=== PATIENT | female | born 1960 | race Two or more races ===

== ENCOUNTER 2020-05-08 11:59 | Inpatient (IN) | payer MEDICAID ==
[~2020-05-08] VITALS: Ht 172.7 cm; Wt 82.2 kg
[2020-05-08] MEDS ORDERED: SODIUM CHLORIDE 0.9% 1,000 ML IV ONE ×2 (12:15→16:15)
[2020-05-08] MEDS ORDERED: SODIUM CHLORIDE 0.9% 1,000 ML IVB ONE (12:15)
[2020-05-08 12:31] LABS: Basophils # (auto) 0 10 ^3/uL (0-0.2); Eosinophils # (auto) 0 10 ^3/uL (0-0.8); Eosinophils % (auto) 0.1 % (0.0-7.0); Hematocrit 39.9 % (36.0-46.0); Lymphocytes # (auto) 0.3 10 ^3/uL (0.4-5.4); Monocytes # (auto) 0.2 10 ^3/uL (0-1.3); Nucleated Red Blood Cells % 0.1 %; Red Cell Distribution Width 16.2 % (11.8-14.3); White Blood Cell 5.3 10^3/uL (4.4-10.8)
[2020-05-08 12:33] LABS: Basophils % (auto) 0.2 % (0.0-2.0); Hemoglobin 13.6 g/dL (12.2-16.2); Lymphocytes % (auto) 6.1 % (10.0-50.0); Mean Corpuscular Hemoglobin 26.5 pg (28.0-32.0); Mean Corpuscular Volume 77.9 fL (80.0-100.0); Neutrophils # (auto) 4.7 10 ^3/uL (1.6-8.6); Neutrophils % (auto) 89.6 % (37.0-80.0); Platelet Count (auto) 160 10^3/uL (140-450); Red Blood Cells 5.12 10^6/uL (4.0-5.20)
[2020-05-08] MEDS ORDERED: ONDANSETRON HCL 4 MG/2 ML VIAL IV ONE (12:45)
[2020-05-08] MEDS ORDERED: MORPHINE SULF INJ 2 MG/ML SYRINGE 1ML IV ONE ×2 (12:45→15:15)
[2020-05-08 12:57] LABS: Albumin 3.3 g/dL (3.4-5.0); Anion Gap 6 (5-15); BUN/Creatinine Ratio 17.1; Blood Urea Nitrogen 12 mg/dL (7-18); Carbon Dioxide 26 mmol/L (21-32); Chloride 106 mmol/L (98-107); GFR African American 111 mL/min; GFR Non-African American 92 mL/min; Glucose 120 mg/dL (74-106); Lipase 64 U/L (73-393); Potassium 3.1 mmol/L (3.5-5.1); Sodium 138 mmol/L (136-145)
[2020-05-08 13:02] LABS: Alanine Aminotransferase 111 U/L (13-56); Alkaline Phosphatase 133 U/L (45-117); Aspartate Aminotransferase 124 U/L (15-37); Bilirubin, Total 0.7 mg/dL (0.2-1.0); Total Protein 7.3 g/dL (6.4-8.2)
[2020-05-08] MEDS ORDERED: metroNIDAZOLE 500MG/100ML 100 ML IV ONE (14:45)
[2020-05-08] MEDS ORDERED: cefTRIAXone 1GM/50ML D5W 50 ML IV ONE (14:45)
[2020-05-08] MEDS ORDERED: HYDROmorphone HCL 2 MG/ML VL IV ONE (16:00)
[2020-05-08] MEDS: POTASSIUM CHL 20MEQ/100ML 100 ML IV SCH ×2 (16:15→18:39)
[2020-05-08] MEDS: levoFLOXacin 500MG 100 ML IV SCH (16:15)
[2020-05-08] MEDS ORDERED: SODIUM CHLORIDE 0.9% 500 ML IV ONE (16:15)
[2020-05-08] MEDS ORDERED: ONDANSETRON HCL 4 MG/2 ML VIAL ONE (18:29)
[2020-05-08] MEDS: ONDANSETRON HCL 4 MG/2 ML VIAL IV PRN (21:27)
[2020-05-08] MEDS: HYDROmorphone HCL 2 MG/ML VL IV PRN (21:28)
[2020-05-08] MEDS: metroNIDAZOLE 500MG/100ML 100 ML IV SCH (21:45)
[2020-05-08 22:00] VITALS: BP 134/71
[2020-05-08 23:00] VITALS: BP 134/71
[2020-05-09] MEDS: HYDROmorphone HCL 2 MG/ML VL IV PRN ×4 (02:30→23:38)
[2020-05-09 05:00] VITALS: BP 139/77
[2020-05-09] MEDS: metroNIDAZOLE 500MG/100ML 100 ML IV SCH ×3 (06:02→21:12)
[2020-05-09] MEDS: ONDANSETRON HCL 4 MG/2 ML VIAL IV PRN ×3 (06:08→23:38)
[2020-05-09 08:00] VITALS: BP 130/77
[2020-05-09 08:17] LABS: Basophils # (auto) 0 10 ^3/uL (0-0.2); Basophils % (auto) 0.2 % (0.0-2.0); Eosinophils # (auto) 0 10 ^3/uL (0-0.8); Lymphocytes # (auto) 0.7 10 ^3/uL (0.4-5.4); Lymphocytes % (auto) 15.6 % (10.0-50.0); Nucleated Red Blood Cells % 0.1 %; White Blood Cell 4.5 10^3/uL (4.4-10.8)
[2020-05-09 08:19] LABS: Eosinophils % (auto) 0.2 % (0.0-7.0); Hematocrit 36.2 % (36.0-46.0); Mean Corpuscular Hemoglobin 25.9 pg (28.0-32.0); Mean Corpuscular Hgb Conc. 33.2 g/dL (32.0-36.0); Mean Corpuscular Volume 78.2 fL (80.0-100.0); Monocytes # (auto) 0.3 10 ^3/uL (0-1.3); Monocytes % (auto) 7.7 % (0.0-12.0); Neutrophils # (auto) 3.5 10 ^3/uL (1.6-8.6); Neutrophils % (auto) 76.3 % (37.0-80.0); Platelet Count (auto) 140 10^3/uL (140-450); Red Blood Cells 4.63 10^6/uL (4.0-5.20); Red Cell Distribution Width 16.4 % (11.8-14.3)
[2020-05-09 08:25] LABS: Calcium 7.7 mg/dL (8.5-10.1)
[2020-05-09 08:27] LABS: BUN/Creatinine Ratio 18.3
[2020-05-09 08:33] LABS: Potassium 2.9 mmol/L (3.5-5.1)
[2020-05-09] MEDS ORDERED: cefTRIAXone 1GM/50ML D5W 50 ML IV SCH (09:00)
[2020-05-09] MEDS ORDERED: POTASSIUM CHLORIDE 40 MEQ, LIDOCAINE 1% (LOCAL ANESTH.) 4 ML in SODIUM CHL 0.9% 250 ML IV ONE (09:30)
[2020-05-09] MEDS ORDERED: POTASSIUM CHL 20 Meq TABLET PO ONE (09:30)
[2020-05-09] MEDS: levoFLOXacin 500MG 100 ML IV SCH (10:31)
[2020-05-09] MEDS: HYOSCYAMINE SULF 0.125 MG ODT TAB PO PRN ×2 (11:17→19:43)
[2020-05-09] MEDS ORDERED: ALBUAER3 IN (11:39)
[2020-05-09] MEDS ORDERED: CETI10TA80 PO (11:39)
[2020-05-09] MEDS ORDERED: BECL80AE11 IN (11:39)
[2020-05-09] MEDS ORDERED: DIPH2.5T73 PO (11:39)
[2020-05-09] MEDS ORDERED: IBUP100S11 PO (11:39)
[2020-05-09] MEDS ORDERED: TOLT2CAP PO (11:39)
[2020-05-09 15:38] VITALS: BP 123/68
[2020-05-09 22:00] VITALS: BP 125/73
[2020-05-10 05:00] VITALS: BP 143/86
[2020-05-10] MEDS: metroNIDAZOLE 500MG/100ML 100 ML IV SCH ×2 (05:34→15:02)
[2020-05-10 05:38] LABS: Basophils # (auto) 0 10 ^3/uL (0-0.2); Basophils % (auto) 0.3 % (0.0-2.0); Eosinophils # (auto) 0.1 10 ^3/uL (0-0.8); Eosinophils % (auto) 2.7 % (0.0-7.0); Hemoglobin 11.9 g/dL (12.2-16.2); Lymphocytes # (auto) 0.5 10 ^3/uL (0.4-5.4); Monocytes # (auto) 0.4 10 ^3/uL (0-1.3)
[2020-05-10 05:41] LABS: Hematocrit 35.6 % (36.0-46.0); Lymphocytes % (auto) 14.1 % (10.0-50.0); Mean Corpuscular Hgb Conc. 33.4 g/dL (32.0-36.0); Mean Corpuscular Volume 77.9 fL (80.0-100.0); Monocytes % (auto) 10.9 % (0.0-12.0); Neutrophils # (auto) 2.7 10 ^3/uL (1.6-8.6); Platelet Count (auto) 133 10^3/uL (140-450); Red Blood Cells 4.56 10^6/uL (4.0-5.20); Red Cell Distribution Width 15.8 % (11.8-14.3); White Blood Cell 3.8 10^3/uL (4.4-10.8)
[2020-05-10 05:54] LABS: BUN/Creatinine Ratio 11.3; Calcium 7.9 mg/dL (8.5-10.1); Potassium 3.2 mmol/L (3.5-5.1)
[2020-05-10] MEDS ORDERED: POTASSIUM CHLORIDE 20 MEQ, LIDOCAINE 1% (LOCAL ANESTH.) 2 ML in SODIUM CHL 0.9% 100 ML IV ONE (06:45)
[2020-05-10] MEDS ORDERED: POTASSIUM CHL 20 Meq TABLET PO ONE (06:45)
[2020-05-10 07:57] VITALS: BP 131/86
[2020-05-10] MEDS: levoFLOXacin 500MG 100 ML IV SCH (09:44)
[2020-05-10] MEDS: ONDANSETRON HCL 4 MG/2 ML VIAL IV PRN (09:44)
[2020-05-10] MEDS: HYDROmorphone HCL 2 MG/ML VL IV PRN (09:44)
[2020-05-10] MEDS ORDERED: DIPHENOXYLATE W/ATROPINE 2.5 MG TAB PO ONE (14:15)
[2020-05-10 16:00] VITALS: BP 144/71
[2020-05-10] MEDS ORDERED: METR500T PO (16:28)
[2020-05-10] MEDS ORDERED: LEVO500T31 PO (16:28)
[2020-05-10] MEDS ORDERED: HYOS0.1264 PO (16:28)
[2020-05-10 17:00] VITALS: BP 132/88
== END 2020-05-10 15:35 | disposition home health service (06) | DRG 249 ==
LOC: ER 11:59 → OVERFLOW 12:00 → EAST 22:08
PROVIDERS: ADMIT Internal Medicine; ATTEND Internal Medicine
DX: K52.9 Noninfective gastroenteritis and colitis, unspecified (principal); J44.1 Chronic obstructive pulmonary disease with (acute) exacerbation; Z90.49 Acquired absence of other specified parts of digestive tract; Z88.1 Allergy status to other antibiotic agents; Z88.5 Allergy status to narcotic agent; Z88.8 Allergy status to other drugs, medicaments and biological substances; Z20.822 Contact with and (suspected) exposure to COVID-19
CPT/HCPCS: 36415; 71045; 74176; 80048; 80053; 83690; 84484; 85025; 87045; 87077; 87426; 87427; 87493; 93005; G0378; J0696; J1956; J2001; J2405; J3480; J3490

== ENCOUNTER 2021-05-05 12:11 | Emergency (ER) | payer MEDICAID ==
[~2021-05-05] VITALS: Ht 152.4 cm; Wt 70.3 kg
[~2021-05-05 12:11] MED LIST: ALBUAER3 IN; BECL80AE11 IN; CETI10TA2 PO; DIPH2.5T73 PO; HYOS0.1264 PO; IBUP100S11 PO; LEVO500T31 PO; METR500T PO; TOLT2CAP PO
[2021-05-05] MEDS ORDERED: ONDANSETRON HCL 4 MG/2 ML VIAL IV ONE ×2 (12:30→14:00)
[2021-05-05] MEDS ORDERED: SODIUM CHLORIDE 0.9% 500 ML IVB ONE (12:30)
[2021-05-05] MEDS ORDERED: MORPHINE SULFATE 4 MG/ML SYR/VIAL IV ONE (12:30)
[2021-05-05 13:00] LABS: Basophils # (auto) 0 10 ^3/uL (0-0.2); Eosinophils # (auto) 0.1 10 ^3/uL (0-0.8); Lymphocytes # (auto) 1.1 10 ^3/uL (0.4-5.4); Monocytes # (auto) 0.4 10 ^3/uL (0-1.3); Nucleated Red Blood Cells % 0.1 %
[2021-05-05 13:03] LABS: Basophils % (auto) 0.4 % (0.0-2.0); Hematocrit 42.2 % (36.0-46.0); Hemoglobin 13.7 g/dL (12.2-16.2); Lymphocytes % (auto) 15.6 % (10.0-50.0); Mean Corpuscular Hgb Conc. 32.6 g/dL (32.0-36.0); Mean Corpuscular Volume 79.9 fL (80.0-100.0); Monocytes % (auto) 5.4 % (0.0-12.0); Neutrophils # (auto) 5.4 10 ^3/uL (1.6-8.6); Neutrophils % (auto) 77.6 % (37.0-80.0); Red Blood Cells 5.28 10^6/uL (4.0-5.20); Red Cell Distribution Width 14.9 % (11.8-14.3); White Blood Cell 6.9 10^3/uL (4.4-10.8)
[2021-05-05 13:11] LABS: Albumin 3.5 g/dL (3.4-5.0); Calcium 8.5 mg/dL (8.5-10.1); Potassium 3.3 mmol/L (3.5-5.1)
[2021-05-05 13:15] LABS: Bilirubin, Total 0.4 mg/dL (0.2-1.0); INR 0.99 (0.9-1.15); Partial Thromboplastin Time 29.9 sec (23.6-33.0); Total Protein 6.7 g/dL (6.4-8.2)
[2021-05-05] MEDS ORDERED: HYDROmorphone HCL 2 MG/ML VL IV ONE (14:00)
[2021-05-05] MEDS ORDERED: IOHEXOL 300 MG/ML 100ML BOTTLE IJ ONE (14:35)
[2021-05-05 18:11] VITALS: BP 160/91
== END 2021-05-05 18:31 | disposition home or self-care (01) ==
LOC: ER 12:15
DX: K43.9 Ventral hernia without obstruction or gangrene (principal); J45.909 Unspecified asthma, uncomplicated; Z90.710 Acquired absence of both cervix and uterus; Z79.2 Long term (current) use of antibiotics; Z79.899 Other long term (current) drug therapy; Z88.5 Allergy status to narcotic agent; Z88.8 Allergy status to other drugs, medicaments and biological substances
CPT/HCPCS: 36415; 74176; 74177; 80053; 83690; 85025; 85610; 85730; 96361; 96374; 96375; 99285; J1170; J2270; J2405; J7040; Q9967

== ENCOUNTER 2021-06-25 20:23 | Emergency (ER) | payer MEDICAID ==
[~2021-06-25] VITALS: Ht 147.3 cm; Wt 73.0 kg
[2021-06-25 20:23] VITALS: BP 171/93
== END 2021-06-26 00:27 | disposition left against medical advice (07) ==
LOC: ER 20:23
DX: M79.672 Pain in left foot (principal); Z53.21 Procedure and treatment not carried out due to patient leaving prior to being seen by health care provider

== ENCOUNTER 2022-03-01 12:11 | Emergency (ER) | payer MEDICAID ==
[~2022-03-01] VITALS: Ht 147.3 cm; Wt 72.6 kg
[2022-03-01 14:14] LABS: Basophils # (auto) 0 10 ^3/uL (0-0.2); Eosinophils # (auto) 0.3 10 ^3/uL (0-0.8); Hematocrit 42.5 % (36.0-46.0); Lymphocytes # (auto) 0.9 10 ^3/uL (0.4-5.4); Mean Corpuscular Hemoglobin 25.7 pg (28.0-32.0); Mean Corpuscular Hgb Conc. 32.1 g/dL (32.0-36.0); Mean Corpuscular Volume 80.1 fL (80.0-100.0); Monocytes # (auto) 0.4 10 ^3/uL (0-1.3); Neutrophils # (auto) 4.3 10 ^3/uL (1.6-8.6); Red Cell Distribution Width 15.1 % (11.8-14.3)
[2022-03-01 14:30] LABS: Albumin 3.5 g/dL (3.4-5.0); BUN/Creatinine Ratio 18.4; Calcium 8.5 mg/dL (8.5-10.1)
[2022-03-01 14:31] LABS: Basophils % (auto) 0.3 % (0.0-2.0); Eosinophils % (auto) 5.4 % (0.0-7.0); Hemoglobin 13.6 g/dL (12.2-16.2); Lymphocytes % (auto) 15.8 % (10.0-50.0); Monocytes % (auto) 6.8 % (0.0-12.0); Neutrophils % (auto) 71.7 % (37.0-80.0); Nucleated Red Blood Cells % 0.2 %
[2022-03-01 14:32] LABS: Bilirubin, Total 0.3 mg/dL (0.2-1.0); Total Protein 7.4 g/dL (6.4-8.2)
[2022-03-01 15:34] LABS: INR 0.94 (0.9-1.15); Partial Thromboplastin Time 29.5 sec (24.6-33.4)
[2022-03-01 15:37] LABS: Urine Bacteria FEW /hpf (None Seen); Urine Blood Negative /uL (Negative); Urine Mucus FEW (None Seen); Urine Specific Gravity 1.018 (1.001-1.035); Urine WBC 6 /hpf (0 - 5)
[2022-03-01] MEDS ORDERED: IOHEXOL 350 MG/ML 100ML IJ ONE (16:14)
[2022-03-01] MEDS ORDERED: POTASSIUM CHL 20 Meq TABLET PO ONE (16:45)
[2022-03-01] MEDS ORDERED: NITR-87 PO (18:04)
[2022-03-01 18:26] VITALS: BP 150/99
[2022-03-01] MEDS ORDERED: NITROFURANTOIN 100 mg CAP PO ONE (18:30)
== END 2022-03-01 18:37 | disposition home or self-care (01) ==
LOC: ER 12:11
DX: M79.605 Pain in left leg (principal); N39.0 Urinary tract infection, site not specified; Z90.49 Acquired absence of other specified parts of digestive tract; Z20.822 Contact with and (suspected) exposure to COVID-19
CPT/HCPCS: 36415; 71275; 80053; 81001; 85025; 85379; 85610; 85730; 87426; 93005; 93971; 99285; Q9967

== ENCOUNTER 2023-02-28 10:02 | Emergency (ER) | payer MEDICAID ==
[~2023-02-28] VITALS: Ht 147.3 cm; Wt 64.1 kg
[~2023-02-28 10:02] MED LIST changes: +NITR-87 PO
[2023-02-28] MEDS ORDERED: SODIUM CHLORIDE 0.9% 1,000 ML IV ONE (13:30)
[2023-02-28 14:40] LABS: Urine Bacteria FEW /hpf (None Seen); Urine Blood Negative /uL (Negative); Urine Clarity HAZY (Clear); Urine Color Yellow (Yellow); Urine Mucus FEW (None Seen); Urine Protein, UAD TRACE (Negative); Urine Specific Gravity 1.025 (1.001-1.035); Urine Urobilinogen Normal (Negative); Urine WBC 76 /hpf (0 - 5); Urine pH 6.5 (5.0-8.0)
[2023-02-28] MEDS ORDERED: NITR-87 PO (15:23)
[2023-02-28] MEDS ORDERED: ONDANSETRON ODT 4 MG TAB PO ONE (16:45)
[2023-02-28] MEDS ORDERED: NITROFURANTOIN 100 mg CAP PO ONE (16:45)
[2023-02-28 16:50] VITALS: BP 160/85; PULSE 71; RESP 19; O2SAT 98
== END 2023-02-28 17:04 | disposition home or self-care (01) ==
LOC: ER 10:02
DX: K43.9 Ventral hernia without obstruction or gangrene (principal); N39.0 Urinary tract infection, site not specified; I10 Essential (primary) hypertension; E11.9 Type 2 diabetes mellitus without complications; J45.909 Unspecified asthma, uncomplicated; Z90.49 Acquired absence of other specified parts of digestive tract; Z90.710 Acquired absence of both cervix and uterus; Z79.2 Long term (current) use of antibiotics; Z79.899 Other long term (current) drug therapy; Z88.5 Allergy status to narcotic agent; Z88.8 Allergy status to other drugs, medicaments and biological substances
CPT/HCPCS: 74176; 81001; 96360; 96361; 99284; J7030; Q0162

== ENCOUNTER 2024-02-15 08:15 | Inpatient (IN) | payer MEDICAID ==
[~2024-02-15] VITALS: Ht 147.3 cm; Wt 56.0 kg
--- NOTE | 2024-02-15 08:40 | ED.PDOC ---
GI ASSESSMENT HPI Comments 63 year old female presents to the ED with chief complaint of abdominal pain. Patient reports that she has been experience RLQ abdominal pain with associated radiation to the right flank and nausea for the past 2 months, worsening over the past 2 weeks. Patient relays that she was told in September she had stones inside her right kidney and to keep an eye out for any future complications that may arise from them. Patient denies any vomiting, diarrhea, dysuria, hematuria, dizziness, or fever. Chief Complaint: Flank Pain Time Seen by MD: 08:37 Primary Care Provider: kaleb Reviewed Notes: Nurses Notes, Medications, Allergies Allergies: Coded Allergies: Acetaminophen (Verified Allergy, Unknown, 05/08/20) Codeine (Verified Allergy, Unknown, 05/08/20) Hydrocodone (Verified Allergy, Unknown, 05/08/20) Home Meds Active Scripts Nitrofurantoin Monohydrate Mac (Macrobid) 100 Mg Cap, 100 MG PO BID for 7 Days, #14 CAP Prov:VIRAJ RUSSELL MD 02/28/23 Nitrofurantoin Monohydrate Mac (Macrobid) 100 Mg Cap, 100 MG PO BID for 5 Days, #10 CAP Prov:KAY MCCORD MD 03/01/22 Metronidazole (Flagyl) 500 Mg Tab, 500 MG PO Q8HR, #21 TAB Prov:DEBRA THAKUR MD 05/10/20 Levofloxacin (Levaquin) 500 Mg Tab, 500 MG PO DAILY, #7 TAB Prov:DEBRA THAKUR MD 05/10/20 Hyoscyamine Sulfate (Hyoscyamine Sulfate) 0.125 Mg Tab, 0.125 MG PO Q4HP PRN, #20 TAB Prov:DEBRA THAKUR MD 05/10/20 Reported Medications Beclomethasone Dipropionate (Qvar Redihaler) 80 Mcg/Act Aer, 80 MCG IN BID, AER 05/09/20 Ibuprofen (Motrin) 100 Mg/5 Ml Ud, 5 ML PO Q6HPRN, #120 ML 05/09/20 Diphenoxylate W/ Atropine (Lomotil) 2.5 Mg Tab, PO, TAB 05/09/20 Cetirizine Hcl (Kls Aller-Marc) 10 Mg Tab, 10 MG PO DAILY, TAB 05/09/20 Tolterodine Tartrate ([place]rol La) 2 Mg Cap, 4 MG PO DAILY, CAP 05/09/20 Albuterol Sulfate (VENTOLIN MDI) 90 Mcg Ih, 90 MCG IN, INH 05/09/20 Information Source: Patient Mode of Arrival: Ambulatory Timing: Months Duration: Since onset Prehospital treatment: None Quality: Aching Vomitus: None Stool: Normal Severity: Moderate Recent: None Recent Hx of: None Pain Location: RLQ Modifying Factors: Nothing Associated sign and symptoms: Nausea, Abdominal Pain Past Medical History PAST MEDICAL HISTORY: Asthma, DM, HTN, Kidney Stones Surgical History: Cholecystectomy, Hysterectomy IP TECHNOLOGY TRANSACTIONS ATTORNEY History: No Pertinent IP TECHNOLOGY TRANSACTIONS ATTORNEY History Family History Family History: Reviewed,noncontributory to illness, Family hx of DM Social History Smoker: Non-Smoker Alcohol: Denies ETOH Use Drugs: Denies Drug Use Lives In: Home Constitutional: denies: chills, diaphoresis, fatigue, fever, malaise, sweats, weakness, others EENTM: denies: blurred vision, double vision, ear bleeding, ear discharge, ear drainage, ear pain, ear ringing, eye pain, eye redness, hearing loss, mouth pain, mouth swelling, nasal discharge, nose bleeding, nose congestion, nose pain, photophobia, tearing, throat pain, throat swelling, voice changes, others Respiratory: denies: cough, hemoptysis, orthopnea, SOB at rest, shortness of breath, SOB with excertion, stridor, wheezing, others Cardiovascular: denies: chest pain, dizzy spells, diaphoresis, Dyspnea on exertion, edema, irregular heart beat, left arm pain, lightheadedness, palpitations, PND, syncope, others Gastrointestinal: reports: abdominal pain, nausea; denies: abdomen distended, blood streaked bowels, constipated, diarrhea, dysphagia, difficulty swallowing, hematemesis, melena, poor appetite, poor fluid intake, rectal bleeding, rectal pain, vomiting, others Genitourinary: reports: flank pain; denies: abnormal vagina bleeding, burning, dyspareunia, dysuria, frequency, hematuria, incontinence, pain, , vagina discharge, urgency, others Neurological: denies: dizziness, fainting, headache, left sided numbness, left sided weakness, numbness, paresthesia, pre-existing deficit, right sided numbness, right sided weakness, seizure, speech problems, tingling, tremors, weakness, others Musculoskeletal: denies: back pain, gout, joint pain, joint swelling, muscle pain, muscle stiffness, neck pain, others Integumetry: denies: bruises, change in color, change in hair/nails, dryness, laceration, lesions, lumps, rash, wounds, others Allergic/Immunocompromised: denies: Difficulty Healing, Frequent Infections, Hives, Itching, others Hematologic/Lymphatic: denies: anemia, blood clots, easy bleeding, easy bruising, swollen glands, others Endocrine: denies: excessive hunger, excessive sweating, excessive thirst, excessive urination, flushing, intolerance to cold, intolerance to heat, unexplained weight gain, unexplained weight loss, others Psychiatric: denies: anxiety, bipolar disorder, depression, hopeless, panic disorder, schizophrenia, sleepless, suicidal, others All Other Systems: Reviewed and Negative Physical Exam General Appearance: Moderate Distress, Normal HEENT: Normal ENT Inspection, PERRL/EOMI Neck: Full Range of Motion, Non-Tender, Normal, Normal Inspection Respiratory: Chest Non-Tender, Lungs Clear, No Accessory Muscle Use, No Respiratory Distress, Normal Breath Sounds Cardiovascular: No Edema, No JVD, No Murmur, No Gallop, Normal Peripheral Pulses, Regular Rate/Rhythm Breast Exam: Deferred Gastrointestinal: No Organomegaly, Non Tender, No Pulsatile Mass, Normal Bowel Sounds, Soft Genitalia: Deferred Pelvic: Deferred Rectal: Deferred Extremities: No calf tenderness, Normal capillary refill, Normal inspection, Normal range of motion, Non-tender, No pedal edema Musculoskeletal : Apperance: Normal Neurologic: Alert, vice provost II-XII nml as Tested, No Motor Deficits, Normal Affect, Normal Mood, No Sensory Deficits Cerebellar Function: Normal Reflexes: Normal Skin: Dry, Normal Color, Warm Peripheral Pulses: 3+ Radial (R), 3+ Radial (L) Lymphatic: No Adenopathy Was a procedure done? Was a procedure done?: No GI differential Dx Differential Diagnosis: Constipation, Diverticular disease, Esophagitis, Gastritis/PUD, Gastroenteritis X-Ray, Labs, Meds, VS Vital Signs Date Time Temp Pulse Resp B/P (MAP) Pulse Ox O2 Delivery O2 Flow Rate FiO2 02/15/24 08:33 71 17 149/67 (94) 96 02/15/24 08:26 98.3 84 16 142/87 (105) 97 Lab Test 02/15/24 08:45 02/15/24 08:24 Range/Units White Blood Count 4.0 L 4.4-10.8 10^3/uL Red Blood Count 5.11 4.0-5.20 10^6/uL Hemoglobin 14.0 12.2-16.2 g/dL Hematocrit 42.4 36.0-46.0 % Mean Corpuscular Volume 82.9 80.0-100.0 fL Mean Corpuscular Hemoglobin 27.4 L 28.0-32.0 pg Mean Corpuscular Hemoglobin Concent 33.0 32.0-36.0 g/dL Red Cell Distribution Width 14.6 H 11.8-14.3 % Platelet Count 159 140-450 10^3/uL Mean Platelet Volume 7.7 6.9-10.8 fL Neutrophils (%) (Auto) 69.5 37.0-80.0 % Lymphocytes (%) (Auto) 22.7 10.0-50.0 % Monocytes (%) (Auto) 5.5 0.0-12.0 % Eosinophils (%) (Auto) 2.0 0.0-7.0 % Basophils (%) (Auto) 0.3 0.0-2.0 % Neutrophils # (Auto) 2.8 1.6-8.6 10 ^3/uL Lymphocytes # (Auto) 0.9 0.4-5.4 10 ^3/uL Monocytes # (Auto) 0.2 0-1.3 10 ^3/uL Eosinophils # (Auto) 0.1 0-0.8 10 ^3/uL Basophils # (Auto) 0 0-0.2 10 ^3/uL Nucleated Red Blood Cells 0.2 % Sodium Level 144 136-145 mmol/L Potassium Level 3.2 L 3.5-5.1 mmol/L Chloride Level 109 H 98-107 mmol/L Carbon Dioxide Level 28 20-31 mmol/L Anion Gap 7 5-15 Blood Urea Nitrogen 12 9-23 mg/dL Creatinine 0.73 0.550-1.02 mg/dL Glomerular Filtration Rate Calc 94 >90 mL/min BUN/Creatinine Ratio 16.4 10.0-20.0 Serum Glucose 94 74-106 mg/dL Calcium Level 9.1 8.7-10.4 mg/dL Urine Color Light-yellow Yellow Urine Clarity Turbid H Clear Urine pH 6.0 5.0-9.0 Urine Specific [place] 1.022 1.001-1.035 Urine Protein Trace H Negative Urine Ketones Negative Negative Urine Blood Negative Negative /uL Urine Nitrite 2+ H Negative Urine Bilirubin Negative Negative Urine Urobilinogen Normal Negative mg/dL Urine Leukocyte Esterase 3+ Negative /uL Urine RBC 2 0 - 4 /hpf Urine WBC 73 0 - 5 /hpf Urine Squamous Epithelial Cells Few <5 /hpf Urine Bacteria Many H None Seen /hpf Urine Mucus Few None Seen Urine Glucose Normal Normal mg/dL Patient alert. Complaining of abdominal pain. Vitals stable. Answering questions. Abdomen is soft. Continues to have right-sided abdominal pain. Reviewed her previous visit. Explained to the patient. Blood pressure continues to be elevated. Was given clonidine. Continue cardiac monitoring. UA shows UTI. Establish intravenous access. Was given fluids. Was given Rocephin. CT scan of the abdomen. Potassium is low. Was given potassium. Time of 1ST Reevaluation: 09:37 Reevaluation 1ST: Unchanged Patient Education/Counseling: Diagnosis, Treatment Family Education/Counseling: No Family Present Departure 1 Departure Time of Disposition: 08:43 Impression: Primary Impression: Intractable abdominal pain Additional Impressions: Sepsis due to urinary tract infection Hypokalemia HTN (hypertension) Qualified Codes: I10 - Essential (primary) hypertension Disposition: ADMITTED INPATIENT Admit to: Med Surg Condition: Guarded Critical Care Note Critical Care Time?: No Stability Stability form required: No Heart Score Heart Score: Heart Score Response (Comments) Value History N/A 0 EKG N/A 0 Age N/A 0 Risk Factors N/A 0 Troponin N/A 0 Total 0 I personally scribed for VIRAJ RUSSELL MD ([email or web address]) on 02/15/24 at 08:40. Electronically submitted by Ajay Wiley ([email or web address]). VIRAJ RUSSELL MD Feb 15, 2024 08:40
[2024-02-15 09:05] LABS: Basophils # (auto) 0 10 ^3/uL (0-0.2); Basophils % (auto) 0.3 % (0.0-2.0); Eosinophils # (auto) 0.1 10 ^3/uL (0-0.8); Hematocrit 42.4 % (36.0-46.0); Lymphocytes # (auto) 0.9 10 ^3/uL (0.4-5.4); Lymphocytes % (auto) 22.7 % (10.0-50.0); Mean Corpuscular Hemoglobin 27.4 pg (28.0-32.0); Mean Corpuscular Volume 82.9 fL (80.0-100.0); Monocytes # (auto) 0.2 10 ^3/uL (0-1.3); Monocytes % (auto) 5.5 % (0.0-12.0); Neutrophils # (auto) 2.8 10 ^3/uL (1.6-8.6); Neutrophils % (auto) 69.5 % (37.0-80.0); Nucleated Red Blood Cells % 0.2 %; Platelet Count (auto) 159 10^3/uL (140-450); Red Blood Cells 5.11 10^6/uL (4.0-5.20); Red Cell Distribution Width 14.6 % (11.8-14.3)
[2024-02-15 09:16] LABS: Anion Gap 7 (5-15); Carbon Dioxide 28 mmol/L (20-31); Chloride 109 mmol/L (98-107); Potassium 3.2 mmol/L (3.5-5.1); Sodium 144 mmol/L (136-145)
[2024-02-15 09:17] LABS: Calcium 9.1 mg/dL (8.7-10.4)
[2024-02-15 09:22] LABS: BUN/Creatinine Ratio 16.4 (10.0-20.0); Blood Urea Nitrogen 12 mg/dL (9-23); Glucose 94 mg/dL (74-106)
[2024-02-15 12:01] LABS: Urine Bacteria MANY /hpf (None Seen); Urine Blood Negative /uL (Negative); Urine Clarity Turbid (Clear); Urine Color Light-Yellow (Yellow); Urine Mucus FEW (None Seen); Urine Protein, UAD TRACE (Negative); Urine Specific Gravity 1.022 (1.001-1.035); Urine Urobilinogen Normal (Negative); Urine WBC 73 /hpf (0 - 5)
[2024-02-15] MEDS ORDERED: SODIUM CHLORIDE 0.9% 1,000 ML IV ONE (15:45)
[2024-02-15] MEDS: SODIUM CHLORIDE 0.9% 1,000 ML IV ONE ×2 (15:45→23:50)
--- NOTE | 2024-02-15 16:23 | DVH ---
Exam: CT CT AB PEL WO CON-NO ORAL OR IV History: stone Comparison Study: None available at time of dictation. TECHNIQUE: Multidetector CT of the abdomen was performed from lung bases to pubic symphysis. Imaging was performed without IV contrast. Axial, coronal and sagittal multiplanar reformats were obtained fr om the axial data set by the technologist. Radiation Dose Information: CT Dose: CTDI volume is 8.31 mGy. Dose-length product is 387.44 mGy*cm FINDINGS: Evaluation of solid organs is limited due to lack of intravenous contrast use. Findings: Lung Bases: No acute or significant lung base finding. Normal heart size. No pleural or pericardial effusion. Liver: The liver is normal in size. No focal lesions. Gallbladder and Biliary Tree: Gallbladder has been surgically removed. Spleen: Unremarkable Pancreas: The pancreas is grossly normal in appearance. Adrenal Glands: Unremarkable Kidneys: Kidneys are grossly normal without hydronephrosis. There is a punctate calculus in the righ t kidney without hydronephrosis. Bladder: Grossly unremarkable for degree of distention. Bowel: The stomach is grossly normal in appearance. Small bowel and colon are normal in caliber and d istribution. On the left there is some fluid-filled small bowel at the level of the iliac crest measu ring 2.622.8 cm. Correlate with location of patient's symptomatology. The appendix is not visualized ; however, no secondary findings of acute appendicitis identified. Ascites: Absent Lymphadenopathy: No mesenteric, retroperitoneal or periportal lymphadenopathy. Abdominal Wall and Mesentery: Unremarkable. Vasculature: The visualized abdominal aorta is normal in size and caliber. Evaluation of abdominal a nd pelvic vessels is limited due to lack of intravenous contrast. Pelvic Organs: Unremarkable Musculoskeletal: No aggressive focal bony lesions, acute fractures or dislocation. Soft tissues: Unremarkable IMPRESSION: 1. Punctate nonobstructing calculus lower pole right kidney. 2. Mildly distended small bowel fluid-filled at the level of the iliac crest on the left. Measures 2. 6-2.8 cm. Correlate with laterality of patient's symptomatology. Radiation optimization: All CT scans at this facility use at least one of these dose optimization darcy hniques: automated exposure control mA and/or kV adjustment per patient size (includes targeted exam s where dose is matched to clinical indication) or iterative reconstruction.
[2024-02-15] MEDS ORDERED: DOCUSATE SOD 100 MG CAP PO PRN (16:30)
[2024-02-15] MEDS ORDERED: MAALOX PLUS or MAALOX 30 ML PO PRN (16:30)
[2024-02-15] MEDS ORDERED: ONDANSETRON HCL 4 MG/2 ML VIAL IV PRN (16:30)
--- NOTE | 2024-02-15 16:55 | DVHHP2 ---
History of Present Illness Reason for Visit: abdominal pain History of Present Illness 63 yo PMH DM, HTN, Asthma, Kidney stones comes to the ed with complaints of pain stating thaht she believes it to be similar to kidney stones that she had in the past patient current complaints refers to the pain and how it feels patient was recommended for admission to the hospital and further evaluation ct scan appears to still be pending Cardiovascular: HTN Pulmonary: Asthma Endocrine: Diabetes Review of Systems Constitutional: Yes: Weakness; No: Fever, Chills, Sweats, Malaise, Other Eyes: No: Pain, Vision change, Conjunctivae inflammation, Eyelid inflammation, Other, Redness ENT: No: Ear pain, Ear discharge, Nose pain, Nose discharge, Nose congestion, Mouth pain, Mouth swelling, Throat pain, Throat swelling, Other Respiratory: Shortness of breath, SOB with excertion; No: Cough, Dry, Wheezing, Hemoptysis, Pleuritic Pain, Sputum, Wheezing, Other Cardiovascular: No: Chest Pain, Palpitations, Orthopnea, Paroxysmal Noc. Dyspnea, Edema, Lt Headedness, Other Gastrointestinal: Abdominal Pain; No: Nausea, Vomiting, Diarrhea, Constipation, Melena, Hematochezia, Other Genitourinary: No Dysuria, No Frequency, No Incontinence, No Hematuria, No Retention, No Other Musculoskeletal: No: other, neck pain, shoulder pain, arm pain, back pain, hand pain, leg pain, foot pain Skin: No: Rash, Lesions, Jaundice, Bruising, Other Neurological: No: Weakness, Numbness, Incoordination, Change in speech, Confusion, Seizures, Other Allergies: Coded Allergies: Acetaminophen (Verified Allergy, Unknown, 05/08/20) Codeine (Verified Allergy, Unknown, 05/08/20) Hydrocodone (Verified Allergy, Unknown, 05/08/20) Exam Vital Signs Vital Signs Date Time Temp Pulse Resp B/P (MAP) Pulse Ox O2 Delivery O2 Flow Rate FiO2 02/15/24 08:33 71 17 149/67 (94) 96 02/15/24 08:26 98.3 General Appearance: Alert, Oriented X3 HEENT: Atraumatic, PERRLA Respiratory: Clear to auscultation, Normal air movement Cardiovascular: Regular rate, Normal S1, Normal S2 Abdominal: Normal bowel sounds, Soft Extremities: No clubbing, No cyanosis Skin: No rashes, No breakdown Neuro: Normal gait, Normal speech Psych/Mental Status: Mood NL Labs/Xrays Labs Test 02/15/24 08:45 02/15/24 08:24 Range/Units White Blood Count 4.0 L 4.4-10.8 10^3/uL Red Blood Count 5.11 4.0-5.20 10^6/uL Hemoglobin 14.0 12.2-16.2 g/dL Hematocrit 42.4 36.0-46.0 % Mean Corpuscular Volume 82.9 80.0-100.0 fL Mean Corpuscular Hemoglobin 27.4 L 28.0-32.0 pg Mean Corpuscular Hemoglobin Concent 33.0 32.0-36.0 g/dL Red Cell Distribution Width 14.6 H 11.8-14.3 % Platelet Count 159 140-450 10^3/uL Mean Platelet Volume 7.7 6.9-10.8 fL Neutrophils (%) (Auto) 69.5 37.0-80.0 % Lymphocytes (%) (Auto) 22.7 10.0-50.0 % Monocytes (%) (Auto) 5.5 0.0-12.0 % Eosinophils (%) (Auto) 2.0 0.0-7.0 % Basophils (%) (Auto) 0.3 0.0-2.0 % Neutrophils # (Auto) 2.8 1.6-8.6 10 ^3/uL Lymphocytes # (Auto) 0.9 0.4-5.4 10 ^3/uL Monocytes # (Auto) 0.2 0-1.3 10 ^3/uL Eosinophils # (Auto) 0.1 0-0.8 10 ^3/uL Basophils # (Auto) 0 0-0.2 10 ^3/uL Nucleated Red Blood Cells 0.2 % Sodium Level 144 136-145 mmol/L Potassium Level 3.2 L 3.5-5.1 mmol/L Chloride Level 109 H 98-107 mmol/L Carbon Dioxide Level 28 20-31 mmol/L Anion Gap 7 5-15 Blood Urea Nitrogen 12 9-23 mg/dL Creatinine 0.73 0.550-1.02 mg/dL Glomerular Filtration Rate Calc 94 >90 mL/min BUN/Creatinine Ratio 16.4 10.0-20.0 Serum Glucose 94 74-106 mg/dL Calcium Level 9.1 8.7-10.4 mg/dL Urine Color Light-yellow Yellow Urine Clarity Turbid H Clear Urine pH 6.0 5.0-9.0 Urine Specific [place] 1.022 1.001-1.035 Urine Protein Trace H Negative Urine Ketones Negative Negative Urine Blood Negative Negative /uL Urine Nitrite 2+ H Negative Urine Bilirubin Negative Negative Urine Urobilinogen Normal Negative mg/dL Urine Leukocyte Esterase 3+ Negative /uL Urine RBC 2 0 - 4 /hpf Urine WBC 73 0 - 5 /hpf Urine Squamous Epithelial Cells Few <5 /hpf Urine Bacteria Many H None Seen /hpf Urine Mucus Few None Seen Urine Glucose Normal Normal mg/dL Assessment/Plan Assessment/Plan Admit to med/surge UTI iv hydration iv abx prn pain meds avoid allergens kidney stones suspected ct scan pending iv hydration prn pain meds Plan discussed with: Patient My Orders Orders - FELECIA HERNANDEZ MD Procedure Category Date Status Time Ceftriaxone 1gm/50ml PHA 02/16/24 Logged D5w (Rocephin) 10:00 Ketorolac Injection PHA 02/15/24 Logged (Toradol Injection) 16:30 Sodium Chloride 0.9% PHA 02/15/24 Logged 16:30 Admit ADMIT 02/15/24 Transmitted 16:25 Code Status CODE 02/15/24 Transmitted 16:25 Vital Signs [facility] 02/15/24 Transmitted 16:25 Review Orders With DELMIS 02/15/24 Transmitted Adm. 16:25 Regular Diet DIET 02/15/24 Transmitted Dinner Sodium Chloride 0.9% PHA 02/15/24 Logged 16:30 Lorazepam Tablet PHA 02/15/24 Logged (Ativan Tablet) 16:30 Alum & Mag PHA 02/15/24 Logged Hydrox-Simethicone 16:30 Docusate Sodium PHA 02/15/24 Logged Capsule (Colace 16:30 Notify Of Changes [facility] 02/15/24 Transmitted From Base 16:25 Advance Directive [facility] 02/15/24 Transmitted 16:25 Basic Metabolic Panel LAB 02/16/24 Verified 04:00 Complete Blood Count LAB 02/16/24 Verified 04:00 Urine Bacterial SHARYN 02/15/24 Transmitted Culture 16:25 Patient Condition ORDERS 02/15/24 Transmitted 16:25 Allergies [facility] 02/15/24 Transmitted 16:25 Ondansetron Hcl PHA 02/15/24 Logged ([place]) 16:30 Notify Md Of Changes DELMIS 02/15/24 Transmitted From Base 16:25 Oxygen By Nasal RT 02/15/24 Transmitted Cannula 16:25 Problem List: (1) Acute abdominal pain (2) UTI (urinary tract infection) (3) Intractable abdominal pain Date of Service: Feb 15, 2024 Billing Provider: FELECIA HERNANDEZ MD Common Visit Codes: [id number] INP/OBS CARE (HIGH) FELECIA HERNANDEZ MD Feb 15, 2024 16:55
[2024-02-15 22:15] VITALS: RESP 16; O2SAT 96
[2024-02-15] MEDS: KETOROLAC TROMETH 30 MG/ML 1ML VIAL IV ONE (22:53)
[2024-02-15] MEDS: cefTRIAXone 1GM/50ML D5W 50 ML IV ONE (22:54)
[2024-02-15] MEDS: SODIUM CHLORIDE 0.9% 1,000 ML IV SCH (23:49)
[2024-02-16 00:22] VITALS: BP 143/74; PULSE 70; RESP 18; TEMP 97.5; O2SAT 98
[2024-02-16] MEDS: KETOROLAC TROMETH 30 MG/ML 1ML VIAL IV PRN (05:06)
[2024-02-16 07:31] LABS: Calcium 8.8 mg/dL (8.7-10.4); Chloride 111 mmol/L (98-107); Potassium 3.2 mmol/L (3.5-5.1); Sodium 146 mmol/L (136-145)
[2024-02-16 07:32] LABS: Anion Gap 11 (5-15); Carbon Dioxide 24 mmol/L (20-31)
[2024-02-16 07:37] LABS: Blood Urea Nitrogen 9 mg/dL (9-23); Glucose 86 mg/dL (74-106)
[2024-02-16 07:43] LABS: Basophils # (auto) 0 10 ^3/uL (0-0.2); Basophils % (auto) 0.3 % (0.0-2.0); Eosinophils # (auto) 0.1 10 ^3/uL (0-0.8); Eosinophils % (auto) 2.9 % (0.0-7.0); Hematocrit 40.5 % (36.0-46.0); Hemoglobin 13.4 g/dL (12.2-16.2); Lymphocytes % (auto) 20.7 % (10.0-50.0); Mean Corpuscular Hemoglobin 27.3 pg (28.0-32.0); Mean Corpuscular Hgb Conc. 33.1 g/dL (32.0-36.0); Mean Corpuscular Volume 82.5 fL (80.0-100.0); Monocytes # (auto) 0.3 10 ^3/uL (0-1.3); Monocytes % (auto) 7.1 % (0.0-12.0); Neutrophils # (auto) 3.2 10 ^3/uL (1.6-8.6); Nucleated Red Blood Cells % 0.2 %; Platelet Count (auto) 155 10^3/uL (140-450); Red Blood Cells 4.91 10^6/uL (4.0-5.20); Red Cell Distribution Width 14.6 % (11.8-14.3); White Blood Cell 4.6 10^3/uL (4.4-10.8)
[2024-02-16 08:25] VITALS: PULSE 73; RESP 16; O2SAT 97
[2024-02-16] MEDS: cefTRIAXone 1GM/50ML D5W 50 ML IV SCH (10:15)
--- NOTE | 2024-02-16 13:08 | DVHPN2 ---
Reviewed: Care Plan, H&P, Labs, Medications, Previous Orders, Radiology Changes from previous H/P or p: No Changes Eyes: No Pain, No Vision change, No Conjunctivae inflammation, No Eyelid inflammation, No Other, No Redness ENT: No Ear pain, No Ear discharge, No Nose pain, No Nose discharge, No Nose congestion, No Mouth pain, No Mouth swelling, No Throat pain, No Throat swelling, No Other Cardiovascular: No Chest Pain, No Palpitations, No Orthopnea, No Paroxysmal Noc. Dyspnea, No Edema, No Lt Headedness, No Other Respiratory: No Cough, No Dry; Shortness of breath, SOB with excertion; No Wheezing, No Hemoptysis, No Pleuritic Pain, No Sputum, No Other Gastrointestinal: No Nausea, No Vomiting; Abdominal Pain; No Diarrhea, No Constipation, No Melena, No Hematochezia, No Other Genitourinary: No Dysuria, No Frequency, No Incontinence, No Hematuria, No Retention, No Other Musculoskeletal: No other, No neck pain, No shoulder pain, No arm pain, No back pain, No hand pain, No leg pain, No foot pain Skin: No Rash, No Lesions, No Jaundice, No Bruising, No Other Objective Vitals Vital Signs Date Time Temp Pulse Resp B/P (MAP) Pulse Ox O2 Delivery O2 Flow Rate FiO2 02/16/24 08:25 73 16 97 Room Air* 0 21 02/16/24 08:00 144/86 (105) 02/16/24 04:00 97.7 97.7 Medications Current Medications Medications Dose Ordered Sig/Katherin Route Start Time Stop Time Status Last Admin Dose Admin Ceftriaxone Sodium 50 ml @ 100 mls/hr DAILY IV 02/16/24 10:00 02/16/24 10:15 100 MLS/HR Ketorolac Tromethamine 30 mg Q6HR PRN IV 02/15/24 16:30 02/20/24 16:29 02/16/24 11:30 30 MG Lorazepam 0.5 mg Q6HP PRN PO 02/15/24 16:30 Al Hydrox/Mg Hydrox/Simethicone 30 ml Q6HP PRN PO 02/15/24 16:30 Docusate Sodium 100 mg BIDPRN PRN PO 02/15/24 16:30 Ondansetron HCl 4 mg Q4HP PRN IV 02/15/24 16:30 Laboratory Results Laboratory Tests 02/16/24 06:15 Chemistry Test 02/16/24 06:15 Calcium Level 8.8 mg/dL (8.7-10.4) Urinalysis Test 02/15/24 08:24 Urine Color Light-yellow (Yellow) Urine Clarity Turbid (Clear) H Urine pH 6.0 (5.0-9.0) Urine Specific [place] 1.022 (1.001-1.035) Urine Protein Trace (Negative) H Urine Ketones Negative (Negative) Urine Blood Negative /uL (Negative) Urine Nitrite 2+ (Negative) H Urine Bilirubin Negative (Negative) Urine Urobilinogen Normal mg/dL (Negative) Urine Leukocyte Esterase 3+ /uL (Negative) Urine RBC 2 /hpf (0 - 4) Urine WBC 73 /hpf (0 - 5) Urine Squamous Epithelial Cells Few /hpf (<5) Urine Bacteria Many /hpf (None Seen) H Urine Mucus Few (None Seen) Urine Glucose Normal mg/dL (Normal) Labs and/or images reviewed: Labs reviewed by me, Image(s) reviewed by me Assessment/Plan Assessment/Plan Sepsis secondary to urinary tract infection Acute urinary tract infection: Blood cultures urine cultures Rocephin History of kidney stones Hypertension Asthma Diabetes Time spent 40 minutes Plan discussed with: Patient My Orders Orders - ARNOLDO GUAMAN MD Procedure Category Date Status Time Communication Order ORDERS 02/16/24 Verified 13:06 Blood Culture SHARYN 02/16/24 Verified 13:06 Date of Service: Feb 16, 2024 Billing Provider: ARNOLDO GUAMAN MD Common Visit Codes: [id number] INP/OBS CARE(HIGH) ARNOLDO GUAMAN MD Feb 16, 2024 13:08
[2024-02-16 22:00] VITALS: BP 146/72; PULSE 62; TEMP 97.4; O2SAT 95
[2024-02-16 23:19] VITALS: BP 134/79; PULSE 61; RESP 18; TEMP 98.1; O2SAT 95
[2024-02-17 05:00] VITALS: BP 125/62; PULSE 85; RESP 16; TEMP 98.8; O2SAT 98
[2024-02-17 08:00] VITALS: PULSE 72; RESP 17; O2SAT 94
[2024-02-17 09:00] VITALS: BP 149/80; PULSE 72; RESP 17; TEMP 97.7; O2SAT 94
[2024-02-17] MEDS ORDERED: HYDROcodone-ACET 5/325MG TAB PO PRN (10:15)
--- NOTE | 2024-02-17 10:16 | DVHPN2 ---
Reviewed: Care Plan, H&P, Labs, Medications, Previous Orders, Radiology Changes from previous H/P or p: No Changes Eyes: No Pain, No Vision change, No Conjunctivae inflammation, No Eyelid inflammation, No Other, No Redness ENT: No Ear pain, No Ear discharge, No Nose pain, No Nose discharge, No Nose congestion, No Mouth pain, No Mouth swelling, No Throat pain, No Throat swelling, No Other Cardiovascular: No Chest Pain, No Palpitations, No Orthopnea, No Paroxysmal Noc. Dyspnea, No Edema, No Lt Headedness, No Other Respiratory: No Cough, No Dry; Shortness of breath, SOB with excertion; No Wheezing, No Hemoptysis, No Pleuritic Pain, No Sputum, No Other Gastrointestinal: No Nausea, No Vomiting; Abdominal Pain; No Diarrhea, No Constipation, No Melena, No Hematochezia, No Other Genitourinary: No Dysuria, No Frequency, No Incontinence, No Hematuria, No Retention, No Other Musculoskeletal: No other, No neck pain, No shoulder pain, No arm pain, No back pain, No hand pain, No leg pain, No foot pain Skin: No Rash, No Lesions, No Jaundice, No Bruising, No Other Objective Vitals Vital Signs Date Time Temp Pulse Resp B/P (MAP) Pulse Ox O2 Delivery O2 Flow Rate FiO2 02/17/24 09:00 97.7 72 17 149/80 (103) 94 97.7 02/16/24 23:19 Room Air* 0 21 Intake/Output Intake and Output 02/17/24 07:00 Intake Total 250 ml Balance 250 ml Intake Oral 200 ml IV Total 50 ml # Voids 1 Medications Current Medications Medications Dose Ordered Sig/Katherin Route Start Time Stop Time Status Last Admin Dose Admin Ceftriaxone Sodium 50 ml @ 100 mls/hr DAILY IV 02/16/24 10:00 02/17/24 09:30 100 MLS/HR Ketorolac Tromethamine 30 mg Q6HR PRN IV 02/15/24 16:30 02/20/24 16:29 02/17/24 06:27 30 MG Lorazepam 0.5 mg Q6HP PRN PO 02/15/24 16:30 Al Hydrox/Mg Hydrox/Simethicone 30 ml Q6HP PRN PO 02/15/24 16:30 Docusate Sodium 100 mg BIDPRN PRN PO 02/15/24 16:30 Ondansetron HCl 4 mg Q4HP PRN IV 02/15/24 16:30 Laboratory Results Laboratory Tests 02/16/24 06:15 Urinalysis Test 02/15/24 08:24 Urine Color Light-yellow (Yellow) Urine Clarity Turbid (Clear) H Urine pH 6.0 (5.0-9.0) Urine Specific [place] 1.022 (1.001-1.035) Urine Protein Trace (Negative) H Urine Ketones Negative (Negative) Urine Blood Negative /uL (Negative) Urine Nitrite 2+ (Negative) H Urine Bilirubin Negative (Negative) Urine Urobilinogen Normal mg/dL (Negative) Urine Leukocyte Esterase 3+ /uL (Negative) Urine RBC 2 /hpf (0 - 4) Urine WBC 73 /hpf (0 - 5) Urine Squamous Epithelial Cells Few /hpf (<5) Urine Bacteria Many /hpf (None Seen) H Urine Mucus Few (None Seen) Urine Glucose Normal mg/dL (Normal) Labs and/or images reviewed: Labs reviewed by me, Image(s) reviewed by me Assessment/Plan Assessment/Plan Sepsis secondary to urinary tract infection Acute urinary tract infection: Blood cultures urine cultures Rocephin History of kidney stones Hypertension Asthma Diabetes Time spent 35 minutes Plan discussed with: Patient My Orders Orders - ARNOLDO GUAMAN MD Procedure Category Date Status Time Communication Order ORDERS 02/16/24 Transmitted 13:06 Blood Culture SHARYN 02/16/24 In Process 13:06 Date of Service: Feb 17, 2024 Billing Provider: ARNOLDO GUAMAN MD Common Visit Codes: [id number] INP/OBS CARE(HIGH) ARNOLDO GUAMAN MD Feb 17, 2024 10:16
[2024-02-17] MEDS: POTASSIUM CHL 20 Meq TABLET PO ONE (11:45)
[2024-02-17 12:47] VITALS: BP 151/64; PULSE 60; RESP 17; TEMP 97.1; O2SAT 93
[2024-02-17] MEDS: LORazepam 0.5 MG TAB PO PRN (19:53)
[2024-02-17 20:00] VITALS: PULSE 72; RESP 17; O2SAT 94
[2024-02-17 21:00] VITALS: BP 121/65; PULSE 61; RESP 16; TEMP 98.5; O2SAT 95
[2024-02-18 05:00] VITALS: BP 125/74; PULSE 66; RESP 16; TEMP 98.6; O2SAT 94
[2024-02-18 08:00] VITALS: PULSE 74; RESP 20; O2SAT 95
[2024-02-18 08:49] VITALS: BP 103/61; PULSE 74; RESP 20; TEMP 97.6; O2SAT 95
[2024-02-18] MEDS ORDERED: CIPR-173 PO (10:20)
--- NOTE | 2024-02-18 10:22 | DVHPN2 ---
Reviewed: Care Plan, H&P, Labs, Medications, Previous Orders, Radiology Changes from previous H/P or p: No Changes Eyes: No Pain, No Vision change, No Conjunctivae inflammation, No Eyelid inflammation, No Other, No Redness ENT: No Ear pain, No Ear discharge, No Nose pain, No Nose discharge, No Nose congestion, No Mouth pain, No Mouth swelling, No Throat pain, No Throat swelling, No Other Cardiovascular: No Chest Pain, No Palpitations, No Orthopnea, No Paroxysmal Noc. Dyspnea, No Edema, No Lt Headedness, No Other Respiratory: No Cough, No Dry; Shortness of breath, SOB with excertion; No Wheezing, No Hemoptysis, No Pleuritic Pain, No Sputum, No Other Gastrointestinal: No Nausea, No Vomiting; Abdominal Pain; No Diarrhea, No Constipation, No Melena, No Hematochezia, No Other Genitourinary: No Dysuria, No Frequency, No Incontinence, No Hematuria, No Retention, No Other Musculoskeletal: No other, No neck pain, No shoulder pain, No arm pain, No back pain, No hand pain, No leg pain, No foot pain Skin: No Rash, No Lesions, No Jaundice, No Bruising, No Other Objective Vitals Vital Signs Date Time Temp Pulse Resp B/P (MAP) Pulse Ox O2 Delivery O2 Flow Rate FiO2 02/18/24 08:49 97.6 74 20 103/61 (75) 95 97.6 02/17/24 20:00 Room Air* 0 21 Intake/Output Intake and Output 02/18/24 07:00 Intake Total 2450 ml Balance 2450 ml Intake Oral 2400 ml IV Total 50 ml # Voids 8 # Bowel Movements 2 Medications Current Medications Medications Dose Ordered Sig/Katherin Route Start Time Stop Time Status Last Admin Dose Admin Ceftriaxone Sodium 50 ml @ 100 mls/hr DAILY IV 02/16/24 10:00 02/18/24 09:33 100 MLS/HR Ketorolac Tromethamine 30 mg Q6HR PRN IV 02/15/24 16:30 02/20/24 16:29 02/18/24 04:43 30 MG Lorazepam 0.5 mg Q6HP PRN PO 02/15/24 16:30 02/17/24 19:53 0.5 MG Al Hydrox/Mg Hydrox/Simethicone 30 ml Q6HP PRN PO 02/15/24 16:30 Docusate Sodium 100 mg BIDPRN PRN PO 02/15/24 16:30 Ondansetron HCl 4 mg Q4HP PRN IV 02/15/24 16:30 Acetaminophen/ Hydrocodone Bitart 1 tab Q6HPRN PRN PO 02/17/24 10:15 Hold Laboratory Results Laboratory Tests 02/16/24 06:15 Urinalysis Test 02/15/24 08:24 Urine Color Light-yellow (Yellow) Urine Clarity Turbid (Clear) H Urine pH 6.0 (5.0-9.0) Urine Specific [place] 1.022 (1.001-1.035) Urine Protein Trace (Negative) H Urine Ketones Negative (Negative) Urine Blood Negative /uL (Negative) Urine Nitrite 2+ (Negative) H Urine Bilirubin Negative (Negative) Urine Urobilinogen Normal mg/dL (Negative) Urine Leukocyte Esterase 3+ /uL (Negative) Urine RBC 2 /hpf (0 - 4) Urine WBC 73 /hpf (0 - 5) Urine Squamous Epithelial Cells Few /hpf (<5) Urine Bacteria Many /hpf (None Seen) H Urine Mucus Few (None Seen) Urine Glucose Normal mg/dL (Normal) Microbiology Microbiology Date/Time Source Procedure Growth Status 02/16/24 14:50 Blood Blood Culture - Preliminary NO GROWTH AFTER 24 HOURS OF INCUBATION. Resulted Labs and/or images reviewed: Labs reviewed by me, Image(s) reviewed by me Assessment/Plan Assessment/Plan Sepsis secondary to urinary tract infection Acute urinary tract infection: Blood cultures negative urine cultures canceled, continue Rocephin History of kidney stones Hypertension Asthma Diabetes Time spent 35 minutes Plan discussed with: Patient My Orders Orders - ARNOLDO GUAMAN MD Procedure Category Date Status Time Hydrocodone-Acet PHA 02/17/24 In Process 5/325mg Tab ([place] 10:15 Date of Service: Feb 18, 2024 Billing Provider: ARNOLDO GUAMAN MD Common Visit Codes: [id number] INP/OBS CARE(HIGH) ARNOLDO GUAMAN MD Feb 18, 2024 10:22
--- NOTE | 2024-02-18 10:27 | DVHDS2 ---
Discharge Summary Date of Admission Feb 15, 2024 at 16:25 Date of Discharge: Feb 18, 2024 Admitting Diagnosis Generalized weakness Wounds: None Labs/Diagnostic Data: Laboratory Results Test 02/16/24 06:15 02/16/24 05:43 02/15/24 08:24 White Blood Count 4.6 10^3/uL (4.4-10.8) Red Blood Count 4.91 10^6/uL (4.0-5.20) Hemoglobin 13.4 g/dL (12.2-16.2) Hematocrit 40.5 % (36.0-46.0) Mean Corpuscular Volume 82.5 fL (80.0-100.0) Mean Corpuscular Hemoglobin 27.3 pg (28.0-32.0) Mean Corpuscular Hemoglobin Concent 33.1 g/dL (32.0-36.0) Red Cell Distribution Width 14.6 % (11.8-14.3) Platelet Count 155 10^3/uL (140-450) Mean Platelet Volume 8.3 fL (6.9-10.8) Neutrophils (%) (Auto) 69.0 % (37.0-80.0) Lymphocytes (%) (Auto) 20.7 % (10.0-50.0) Monocytes (%) (Auto) 7.1 % (0.0-12.0) Eosinophils (%) (Auto) 2.9 % (0.0-7.0) Basophils (%) (Auto) 0.3 % (0.0-2.0) Neutrophils # (Auto) 3.2 10 ^3/uL (1.6-8.6) Lymphocytes # (Auto) 1.0 10 ^3/uL (0.4-5.4) Monocytes # (Auto) 0.3 10 ^3/uL (0-1.3) Eosinophils # (Auto) 0.1 10 ^3/uL (0-0.8) Basophils # (Auto) 0 10 ^3/uL (0-0.2) Nucleated Red Blood Cells 0.2 % Sodium Level 146 mmol/L (136-145) Potassium Level 3.2 mmol/L (3.5-5.1) Chloride Level 111 mmol/L (98-107) Carbon Dioxide Level 24 mmol/L (20-31) Anion Gap 11 (5-15) Blood Urea Nitrogen 9 mg/dL (9-23) Creatinine 0.60 mg/dL (0.550-1.02) Glomerular Filtration Rate Calc 102 mL/min (>90) BUN/Creatinine Ratio 15.0 (10.0-20.0) Serum Glucose 86 mg/dL (74-106) Calcium Level 8.8 mg/dL (8.7-10.4) POC Glucose 83 mg/dl (70-106) Urine Color Light-yellow (Yellow) Urine Clarity Turbid (Clear) Urine pH 6.0 (5.0-9.0) Urine Specific [place] 1.022 (1.001-1.035) Urine Protein Trace (Negative) Urine Ketones Negative (Negative) Urine Blood Negative /uL (Negative) Urine Nitrite 2+ (Negative) Urine Bilirubin Negative (Negative) Urine Urobilinogen Normal mg/dL (Negative) Urine Leukocyte Esterase 3+ /uL (Negative) Urine RBC 2 /hpf (0 - 4) Urine WBC 73 /hpf (0 - 5) Urine Squamous Epithelial Cells Few /hpf (<5) Urine Bacteria Many /hpf (None Seen) Urine Mucus Few (None Seen) Urine Glucose Normal mg/dL (Normal) Other Laboratory Tests 02/16/24 06:15 Brief Hx & Hospital Course: 63-year-old female with a history of hypertension asthma diabetes kidney stones came in for generalized weakness found to have sepsis secondary to urinary tract infection blood cultures negative urine cultures were canceled patient was treated with Rocephin being discharged home on Cipro she is afebrile and feels much better and wants to go home Consults/Reason for consult None Operations or Procedures None Condition at Discharge: Fair Final Diagnosis/Problems List Sepsis secondary to urinary tract infection Acute urinary tract infection: Blood cultures negative urine cultures canceled, continue Rocephin History of kidney stones Hypertension Asthma Diabetes Discharge Disposition: Home Discharge Instruct/Medications Diet: Consistent carbohydrate Activity: Light activity Medications: Cipro Transmitted to [facility] and [address] [place], [place] [id number] (Time taken for discharge summary 39 minutes) Discharge Statement: "Patient was advised to return to the ER or call 911 if any headaches, dizziness, shortness of breath, chest pain, abdominal pain, bleeding, fevers, or worsening of medical condition. Patient was counseled about treatment plan, medications, possible side effects, patientverbalized understanding. All questions were answered to the best of my ability. This discharge took greater then 30 minutes in planning, reviewing documentation, counseling the patient, and discussing with other team members." ASSESSMENT ASSESSMENT Hospital Course Resolved Assessment Sepsis secondary to urinary tract infection Acute urinary tract infection: Blood cultures negative urine cultures canceled, continue Rocephin History of kidney stones Hypertension Asthma Diabetes Date of Service: Feb 18, 2024 Billing Provider: ARNOLDO GUAMAN MD Common Visit Codes: [id number] DISCH DAY >30min ARNOLDO GUAMAN MD Feb 18, 2024 10:27
[2024-02-18 12:49] VITALS: BP 138/89; PULSE 76; RESP 18; TEMP 97.6; O2SAT 98
[2024-02-18 13:11] VITALS: BP 138/89; PULSE 76; RESP 18; TEMP 97.6; O2SAT 98
== END 2024-02-18 13:30 | disposition home or self-care (01) | DRG 463 ==
LOC: ER 08:15 → OVERFLOW 16:25 → EAST 02-16 22:50
PROVIDERS: ADMIT Hospitalist; ATTEND Family Medicine
DX: N30.00 Acute cystitis without hematuria (principal); E11.9 Type 2 diabetes mellitus without complications; E87.6 Hypokalemia; I10 Essential (primary) hypertension; J45.909 Unspecified asthma, uncomplicated; N20.0 Calculus of kidney; Z90.49 Acquired absence of other specified parts of digestive tract; Z90.710 Acquired absence of both cervix and uterus; Z87.442 Personal history of urinary calculi; Z88.5 Allergy status to narcotic agent; Z88.6 Allergy status to analgesic agent
CPT/HCPCS: 36415; 74176; 80048; 81001; 82962; 85025; 87040; G0378; J1885